=== PATIENT | female | born 1940 | race Caucasian/White ===

== ENCOUNTER 2023-07-08 23:51 | Inpatient (IN) | payer BC, OTHER ==
[2023-07-09] MEDS ORDERED: ACETAMINOPHEN INJECTION 100 ML IVPB ONE (00:28)
[2023-07-09] MEDS ORDERED: PIPERACILLIN/TAZOB 4.5 GM 4.5 GM/100 ML BAG IVPB ONE (00:28)
[2023-07-09] MEDS ORDERED: NOREPINEPHRINE 0.9 % NACL 8 MG/250 ML BAG IVPB ONE (00:29)
[2023-07-09 00:35] LABS: VENOUS BASE EXCESS -4.6 mmol/L (-2-2); VENOUS O2 SATURATION 47.6 % (70-80)
[2023-07-09] MEDS: NOREPINEPHRINE 0.9 % NACL 8 MG/250 ML BAG IVPB SCH (01:02)
[2023-07-09] MEDS: PIPERACILLIN/TAZOB 4.5 GM 4.5 GM in DEXTROSE 5%-WATER 100 ML IVPB ONE (01:02)
[2023-07-09] MEDS: ACETAMINOPHEN 1000 MG/100 ML BAG IVPB ONE (01:04)
[2023-07-09 01:05] LABS: VENOUS PCO2 84.5 mmHg (38-52); VENOUS PH 7.106 (7.310-7.410)
[2023-07-09 01:06] LABS: LACTIC ACID 4.3 mmol/L (0.4-2.0)
[2023-07-09 01:14] LABS: HEMATOCRIT 28.8 % (32.4-45.2); HEMOGLOBIN 9.1 GM/dL (10.7-15.3); MEAN CELL VOLUME 76.7 fl (80-96); RBC 3.75 M/mm3 (3.60-5.2); WHITE BLOOD COUNT 29.9 K/mm3 (4.0-10.0)
[2023-07-09 01:15] LABS: MCH 24.3 pg (25.7-33.7); MCHC 31.7 g/dl (32.0-36.0); RDW 28.8 % (11.6-15.6)
[2023-07-09 01:22] LABS: INR 1.58 (0.83-1.09); PROTHROMBIN TIME (PATIENT) 18.3 SEC (9.7-13.0)
[2023-07-09] MEDS ORDERED: VANCOMYCIN 1 GRAM (PRE-DOCKED) 1,000 MG/250 ML BAG IVPB ONE (01:23)
[2023-07-09 01:25] LABS: ACTIVATED PTT 31.8 SECONDS (25.2-36.5)
[2023-07-09] MEDS: LACTATED RINGERS SOLUTION 1,000 ML/1,000 ML INFUS.BAG IV STA ×3 (01:25→11:26)
[2023-07-09 01:39] LABS: BLOOD UREA NITROGEN 23.7 mg/dL (7-18)
[2023-07-09 01:40] LABS: ALBUMIN 2.8 g/dl (3.4-5.0)
[2023-07-09] MEDS: VANCOMYCIN 1,000 MG in DEXTROSE 5%-WATER - 250 ML IVPB ONE (01:40)
[2023-07-09 01:42] LABS: CREATININE 1.6 mg/dL (0.55-1.3)
[2023-07-09 01:44] LABS: BILIRUBIN,TOTAL 0.9 mg/dL (0.2-1); TOT PROT 5.8 g/dl (6.4-8.2)
[2023-07-09 02:33] LABS: LACTIC ACID 4.6 mmol/L (0.4-2.0)
[2023-07-09 02:38] VITALS: BMI 25.1
[2023-07-09] MEDS ORDERED: VASopressin 20 UNITS/ML VIAL IV ONE (03:58)
[2023-07-09] MEDS: VASopressin 40 UNITS/100 ML BAG IV SCH (04:14)
[2023-07-09] MEDS: LACTATED RINGERS SOLUTION 1,000 ML/1,000 ML INFUS.BAG IV SCH (04:14)
[2023-07-09] MEDS: HYDROCORTISONE SOD SUCCINATE 100 MG/2 ML VIAL IVPUSH SCH ×2 (04:14→09:11)
[2023-07-09 05:37] LABS: ARTERIAL BLD GAS O2 SATURATION 98.6 % (95-98); ARTERIAL BLOOD GAS BASE EXCESS -4.7 mmol/L (-2-2); ARTERIAL BLOOD GAS PO2 149.4 mmHg (80-100); ARTERIAL BLOOD GAS pH 7.248 (7.350-7.450); HEMATOCRIT 26.2 % (32.4-45.2); HEMOGLOBIN 8.4 GM/dL (10.7-15.3); MCH 24.3 pg (25.7-33.7); MCHC 32.1 g/dl (32.0-36.0); MEAN CELL VOLUME 75.6 fl (80-96); MEAN PLT VOLUME 6.5 fl (7.5-11.1); RBC 3.46 M/mm3 (3.60-5.2); RDW 28.2 % (11.6-15.6)
[2023-07-09 05:58] LABS: MAGNESIUM 1.6 mg/dL (1.8-2.4)
[2023-07-09 05:59] LABS: POTASSIUM 3.3 mmol/L (3.5-5.1)
[2023-07-09 06:02] LABS: CALCIUM 7.3 mg/dL (8.5-10.1)
[2023-07-09 06:03] LABS: ALBUMIN 2.4 g/dl (3.4-5.0); BLOOD UREA NITROGEN 24.8 mg/dL (7-18)
[2023-07-09 06:05] LABS: CREATININE 1.7 mg/dL (0.55-1.3)
[2023-07-09 06:06] LABS: INR 1.77 (0.83-1.09); PHOSPHOROUS 4.7 mg/dL (2.5-4.9); PROTHROMBIN TIME (PATIENT) 20.4 SEC (9.7-13.0)
[2023-07-09 06:07] LABS: BILIRUBIN,TOTAL 1.6 mg/dL (0.2-1); TOT PROT 4.9 g/dl (6.4-8.2)
[2023-07-09 06:51] LABS: EPI CELLS >36 /uL (0-25.1); HYALINE CASTS 7 /uL (0-3.1); URINE APPEARANCE TURBID; URINE BACTERIA >9,000 /uL (0-1359); URINE BILIRUBIN NEGATIVE (NEGATIVE); URINE COLOR DK YELLOW; URINE GLUCOSE (UA) NEGATIVE (NEGATIVE); URINE KETONE TRACE (NEGATIVE); URINE LEUK ESTERASE 3+ (NEGATIVE); URINE NITRITE NEGATIVE (NEGATIVE); URINE PROTEIN 3+ (NEGATIVE); URINE WBC 19393 /uL (0-25.8)
[2023-07-09] MEDS: MAGNESIUM 1GM/D5W - 1 GM/100 ML IVPB IVPB ONE (07:43)
[2023-07-09] MEDS: KCL 20 MEQ PREMIX BAG 20 MEQ/100 ML INFUS.BAG IVPB ONE (08:00)
[2023-07-09] MEDS: MUPIROCIN 2% TOPICAL OINTMENT FOR DECOLONIZATION NS SCH (09:11)
[2023-07-09] MEDS: PIPERACILLIN/TAZOB 2.25 GM 2.25 GM in DEXTROSE 5%-WATER - 50 ML IVPB SCH (09:11)
[2023-07-09] MEDS: PANTOPRAZOLE SODIUM 40 MG VIAL IVPUSH SCH (09:12)
[2023-07-09] MEDS: HEPARIN NA (PORCINE) 5,000 UNITS/ML 1ML VIAL SQ SCH (09:23)
[2023-07-09 09:57] LABS: URINE RBC 269 /uL (0-23.9); YEAST NONE SEEN (NEGATIVE)
[2023-07-09] MEDS: INSULIN ASPART SLIDING SCALE (NOVOLOG) 1 VIAL SQ SCH (10:11)
[2023-07-09] MEDS ORDERED: INSULIN (NOVOLOG) ASPART 100 UNITS/ML 10ML VIAL ONE (10:11)
[2023-07-09 10:27] LABS: ANISOCYTOSIS 0; MACROCYTOSIS 0; ROULEAU 0
[2023-07-09 10:44] LABS: ANISOCYTOSIS 0; CORRECTED WBC 22.81 K/mm3; MACROCYTOSIS 0
[2023-07-09 10:45] LABS: PLATELET COUNT 27 10^3/uL (134-434)
[2023-07-09] MEDS ORDERED: PHENYLEPHRINE HCL 10 MG/1 ML SINGLE DOSE VIAL ONE (11:48)
[2023-07-09] MEDS: PHENYLEPHRINE NS PREMIX 50,000 MCG/500 ML BAG CVP SCH (12:15)
[2023-07-09 13:11] VITALS: BP 77/42; PULSE 65; RESP 19; TEMP 98.8
[2023-07-09] MEDS ORDERED: CHLORHEXIDINE GLUCONATE 4% CLEANSER FOR DECOLONIZATION TP SCH (22:00)
[2023-07-10] MEDS ORDERED: PIPERACILLIN/TAZOB 2.25 GM 2.25 GM in DEXTROSE 5%-WATER - 50 ML IVPB SCH (09:00)
== END 2023-07-09 12:44 | disposition expired | DRG 871 ==
LOC: JER 23:51 → JERBED 07-09 01:24 → JICU 07-09 02:11
PROVIDERS: ADMIT Internal Medicine Pulmonary Disease; ATTEND Internal Medicine Pulmonary Disease
PROC: 06HM33Z Insertion of Infusion Device into Right Femoral Vein, Percutaneous Approach (ICD-10-PCS; principal; 2023-07-09)
PROC: B54BZZA Ultrasonography of Right Lower Extremity Veins, Guidance (ICD-10-PCS; 2023-07-09)
PROC: 4A133B1 Monitoring of Arterial Pressure, Peripheral, Percutaneous Approach (ICD-10-PCS; 2023-07-09)
PROC: 4A133J1 Monitoring of Arterial Pulse, Peripheral, Percutaneous Approach (ICD-10-PCS; 2023-07-09)
DX: A41.89 Other specified sepsis (principal); J18.9 Pneumonia, unspecified organism; R65.21 Severe sepsis with septic shock; J96.01 Acute respiratory failure with hypoxia; J96.02 Acute respiratory failure with hypercapnia; N39.0 Urinary tract infection, site not specified; E87.20 Acidosis, unspecified; I24.89 Other forms of acute ischemic heart disease; I48.20 Chronic atrial fibrillation, unspecified; N17.9 Acute kidney failure, unspecified; J98.11 Atelectasis; I25.10 Atherosclerotic heart disease of native coronary artery without angina pectoris; E11.9 Type 2 diabetes mellitus without complications; R50.9 Fever, unspecified; I95.9 Hypotension, unspecified; G30.9 Alzheimer's disease, unspecified; F02.80 Dementia in other diseases classified elsewhere, unspecified severity, without behavioral disturbance, psychotic disturbance, mood disturbance, and anxiety; R79.89 Other specified abnormal findings of blood chemistry; D72.829 Elevated white blood cell count, unspecified; D46.Z Other myelodysplastic syndromes
CPT/HCPCS: 0241U-QW; 36415; 36600; 71045-TC-FY; 80053; 81003; 82550; 82803; 82962; 83605; 83735; 84100; 84484; 85025; 85610; 85730; 86850; 86900; 86901; 87040; 87081; 87086; 87186; 88300-TC; 93005; 93010; 99291; J0131; J1644; J3490